=== PATIENT | female | born 1955 | race Caucasian/White ===

== ENCOUNTER → 2017-10-21 | Outpatient (CLI) | payer BC ==
--- NOTE | 2017-10-21 10:10 | XCELERA REPORT ---
[address] [address] Lower Extremity Venous Evaluation Name: PRISCA MAJANO Age: 62 yrs Gender: Female : 1955 Patient Status: Outpatient Patient Location: Study Date: 10/21/2017 08:48 AM Procedure: Color flow and duplex imaging of the veins of the right lower extremity as well as the left Common Femoral vein. Reason For Study: RLE PAIN Ordering Physician: MARÍA PATEL Performed By: Christiane Gonzalez Right Sided Venous Evaluation Normal vessel filling wall to wall, compression and augmentation as well as Colour flow down to the infrageniculate veins. Left Sided Venous Evaluation The left common femoral vein is fully compressible. Spontaneous and phasic flow is present in the left common femoral vein. Interpretation Summary No duplex evidence of DVT or obstruction in the right lower extremity nor in the left Common Femoral vein. : MARÍA PATEL > Mansoor Alfaro
== END ==
LOC: SP 08:25
PROVIDERS: ATTEND Internal Medicine Cardiovascular Disease
DX: M79.604 Pain in right leg (principal)
CPT/HCPCS: 93971

== ENCOUNTER 2020-06-09 08:03 | Day surgery (SDC) | payer BC, MEDICARE ==
[2020-06-09 08:57] LABS: INTERNATIONAL RATION (INR) 0.87; PROTHROMBIN TIME 12.1 SEC (11.4-15.4)
[2020-06-09 08:58] LABS: PARTIAL THROMBOPLASTIN TIME 32.5 SEC (23.5-35.8)
[2020-06-09 14:10] VITALS: BP 132/80
--- NOTE | 2020-06-09 15:00 | RADIOLOGY REPORT (SQ) ---
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 TECHNIQUE: Myelography was discussed with the patient, and she agreed to the procedure. Under fluoroscopic localization, the right/left paracentral L3-4 level was localized. Skin marked. Ti meout performed. After sterile skin prep and 10 mL of 1% local lidocaine for skin and deep tissue anesthesia, a 7 cm 2 0 gauge spinal needle was used to access the lumbar subarachnoid space via right paracentral approach at the 3 level. Prompt return of clear cerebrospinal fluid. At this point, 9mL ofOmni 300contrast wa s injected into the thecal sac without complication. Needle withdrawn, Band-Aid applied. After performing cervical myelogram, axial images were acquired through the cervical spine without in travenous contrast. Images reviewed with lung, soft tissue and bone windows. Reconstructed coronal and sagittal MPR images reviewed. Images stored on PACS. All CT scanners at this facility use dose modulation, iterative reconstruction, and/or weight based d osing when appropriate to reduce radiation dose to as low as reasonably achievable (ALARA). [facility]: Dose Right [facility]: CareDose [facility]: Dose Right [facility]: Teradose 4D [facility]: [employer] RADIATION DOSE: CT Rad equipment meets quality standard of care and radiation dose reduction techniq ues were employed. CTDIvol: 19.8 mGy. DLP: 501 mGy-cm. mGy. LIMITATIONS: None. FINDINGS: ALIGNMENT: Straightening of the normal cervical lordosis. MINERALIZATION: Normal. VERTEBRAL BODIES: No evidence of fracture. No dislocation. Fusion hardware from C4-C7 without evide nce of complication. C4-5 fusion hardware new compared prior exam. DISCS: C1-C2: No significant spinal stenosis or exit foraminal stenosis. C2-C3: No significant spinal stenosis or exit foraminal stenosis. C3-C4: No significant spinal stenosis or exit foraminal stenosis. C4-C5: Fusion hardware, new compared to prior exam. Posterior disc complex causing moderate canal st enosis and effacement of the anterior CSF column, left greater than right. There is flattening of th e cord at this level, mildly improved from prior. Mild right and repx-yn-hockctwq left neural forami nal narrowing secondary to uncovertebral hypertrophy. C5-C6: Fusion hardware. Posterior disc osteophyte complex with mild canal narrowing. No high-grade neural foraminal stenosis. C6-C7: No significant spinal canal stenosis. Rpyl-ze-wrdndppp bilateral neural foraminal narrowing s econdary to uncovertebral hypertrophy, right greater than left. C7-T1: No significant spinal stenosis or exit foraminal stenosis. FACETS, LATERAL MASSES, POSTERIOR ELEMENTS: No evidence of facet fracture dislocation. No significan t facet arthropathy. VISUALIZED RIBS: No fractures. LUNG APICES AND SOFT TISSUES: No significant or acute findings. OTHER: No other significant finding. IMPRESSION: 1. No evidence of acute bony abnormality of the cervical spine. 2. Multilevel degenerative changes. Fusion hardware from C4-C7, new compared to prior exam. 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 This appears mildly improved from prior exam. Zobq-gu-couczfyf left neural foraminal narrowing. 3. Stable addition fusion hardware from C5-C7. Additional level specific findings as above. COMMENT: Patient medication list reviewed: Yes- Quality ID# [id number]:Eligible professional attests to doc umenting in the medical record they obtained, updated, or reviewed the patient's current medications. TECHNICAL DOCUMENTATION: JOB ID: [id number] Quality ID 145: Final reports for procedures using fluoroscopy that document radiation exposure lupe kathy, or exposure time and number of fluorographic images (if radiation exposure indices are not avail able) Quality ID # 436: Final reports with documentation of one or more dose reduction techniques (e.g., Au tomated exposure control, adjustment of the mA and/or kV according to patient size, use of iterative reconstruction technique) 2010 [employer]- All Rights Reserved Reading location - IP/workstation name: [email or web address]
--- NOTE | 2020-06-09 15:00 | RADIOLOGY REPORT (SQ) ---
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 TECHNIQUE: Myelography was discussed with the patient, and she agreed to the procedure. Under fluoroscopic localization, the right/left paracentral L3-4 level was localized. Skin marked. Ti meout performed. After sterile skin prep and 10 mL of 1% local lidocaine for skin and deep tissue anesthesia, a 7 cm 2 0 gauge spinal needle was used to access the lumbar subarachnoid space via right paracentral approach at the 3 level. Prompt return of clear cerebrospinal fluid. At this point, 9mL ofOmni 300contrast wa s injected into the thecal sac without complication. Needle withdrawn, Band-Aid applied. After performing cervical myelogram, axial images were acquired through the cervical spine without in travenous contrast. Images reviewed with lung, soft tissue and bone windows. Reconstructed coronal and sagittal MPR images reviewed. Images stored on PACS. All CT scanners at this facility use dose modulation, iterative reconstruction, and/or weight based d osing when appropriate to reduce radiation dose to as low as reasonably achievable (ALARA). [facility]: Dose Right [facility]: CareDose [facility]: Dose Right [facility]: Teradose 4D [facility]: [employer] RADIATION DOSE: CT Rad equipment meets quality standard of care and radiation dose reduction techniq ues were employed. CTDIvol: 19.8 mGy. DLP: 501 mGy-cm. mGy. LIMITATIONS: None. FINDINGS: ALIGNMENT: Straightening of the normal cervical lordosis. MINERALIZATION: Normal. VERTEBRAL BODIES: No evidence of fracture. No dislocation. Fusion hardware from C4-C7 without evide nce of complication. C4-5 fusion hardware new compared prior exam. DISCS: C1-C2: No significant spinal stenosis or exit foraminal stenosis. C2-C3: No significant spinal stenosis or exit foraminal stenosis. C3-C4: No significant spinal stenosis or exit foraminal stenosis. C4-C5: Fusion hardware, new compared to prior exam. Posterior disc complex causing moderate canal st enosis and effacement of the anterior CSF column, left greater than right. There is flattening of th e cord at this level, mildly improved from prior. Mild right and fnab-ru-ivonxrcn left neural forami nal narrowing secondary to uncovertebral hypertrophy. C5-C6: Fusion hardware. Posterior disc osteophyte complex with mild canal narrowing. No high-grade neural foraminal stenosis. C6-C7: No significant spinal canal stenosis. Gtwk-qk-mxkoqtns bilateral neural foraminal narrowing s econdary to uncovertebral hypertrophy, right greater than left. C7-T1: No significant spinal stenosis or exit foraminal stenosis. FACETS, LATERAL MASSES, POSTERIOR ELEMENTS: No evidence of facet fracture dislocation. No significan t facet arthropathy. VISUALIZED RIBS: No fractures. LUNG APICES AND SOFT TISSUES: No significant or acute findings. OTHER: No other significant finding. IMPRESSION: 1. No evidence of acute bony abnormality of the cervical spine. 2. Multilevel degenerative changes. Fusion hardware from C4-C7, new compared to prior exam. 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 This appears mildly improved from prior exam. Mdjl-hb-vymetzpy left neural foraminal narrowing. 3. Stable addition fusion hardware from C5-C7. Additional level specific findings as above. COMMENT: Patient medication list reviewed: Yes- Quality ID# [id number]:Eligible professional attests to doc umenting in the medical record they obtained, updated, or reviewed the patient's current medications. TECHNICAL DOCUMENTATION: JOB ID: [id number] Quality ID 145: Final reports for procedures using fluoroscopy that document radiation exposure lupe kathy, or exposure time and number of fluorographic images (if radiation exposure indices are not avail able) Quality ID # 436: Final reports with documentation of one or more dose reduction techniques (e.g., Au tomated exposure control, adjustment of the mA and/or kV according to patient size, use of iterative reconstruction technique) 2010 [employer]- All Rights Reserved Reading location - IP/workstation name: [email or web address]
== END 2020-06-09 13:35 | disposition home or self-care (01) ==
LOC: RAD 08:03
PROVIDERS: ATTEND Psychiatry & Neurology Neurology
DX: G95.9 Disease of spinal cord, unspecified (principal); Z79.01 Long term (current) use of anticoagulants; Z79.899 Other long term (current) drug therapy; I10 Essential (primary) hypertension; E78.5 Hyperlipidemia, unspecified; E03.9 Hypothyroidism, unspecified; G47.33 Obstructive sleep apnea (adult) (pediatric)
CPT/HCPCS: 36415; 72126; 72240; 82947; 85610; 85730

== ENCOUNTER → 2020-06-27 | Outpatient (CLI) | payer MEDICARE ==
--- NOTE | 2020-06-28 15:04 | RADIOLOGY REPORT (SQ) ---
EXAM DESCRIPTION: ARTERIAL LOWER EXTREM BILAT IMAGES COMPLETED DATE/TIME: 06/27/2020 3:21 pm REASON FOR STUDY: ULCER L89.890 PRESSURE ULCER OF OTHER SITE, UNSTAGEABLE COMPARISON: None. TECHNIQUE: Dynamic and static crockett scale and color images acquired of the lower extremity arteries. Additional selected spectral images recorded. LIMITATIONS: None. FINDINGS: RIGHT LEG: FEMORAL ARTERIES: Triphasic spectral waveforms. No velocity elevation to suggest focal stenosis. Nor mal color Doppler evaluation. No aneurysm. POPLITEAL ARTERY:Triphasic spectral waveforms. No velocity elevation to suggest focal stenosis. Norm al color Doppler evaluation. No aneurysm. PATENT TIBIOPERONEAL TRUNK AND 3 VESSEL RUNOFF: The posterior tibial and anterior tibial arteries ar e patent and have normal spectral waveforms, velocities and color Doppler evaluation. The dorsalis p ricardo at the level of the ankle is not visualized ; the vessel at the level of the toes is patent. OTHER: No other finding. LEFT LEG: FEMORAL ARTERIES: Triphasic spectral waveforms. No velocity elevation to suggest focal stenosis. Norm al color Doppler evaluation. No aneurysm. POPLITEAL ARTERY: Triphasic spectral waveforms. No velocity elevation to suggest focal stenosis. Norm al color Doppler evaluation. No aneurysm. PATENT TIBIOPERONEAL TRUNK AND 3 VESSEL RUNOFF: The posterior tibial and anterior tibial arteries are patent and have normal spectral waveforms, velocities and color Doppler evaluation. The dorsalis pe dis at the level of the ankle is not visualized ; the vessel at the level of the toes is patent. OTHER: No other findings. IMPRESSION: NORMAL BILATERAL LOWER EXTREMITY ARTERIAL DOPPLER. TECHNICAL DOCUMENTATION: JOB ID: [id number] 2010 [employer]- All Rights Reserved Reading location - IP/workstation name: [email or web address]
== END ==
LOC: RAD 12:35
PROVIDERS: ATTEND Physician Assistant
DX: L89.890 Pressure ulcer of other site, unstageable (principal)
CPT/HCPCS: 93925